=== PATIENT | female | born 1990 | race American Indian/Alaskan Native ===

== ENCOUNTER 2020-03-29 11:30 | Inpatient (IN) | payer MEDICAID ==
--- NOTE | 2020-04-03 09:11 | History and Physical Report ---
History of Present Illness Date of examination: 04/03/20 Chief complaint: scheduled section History of present illness: Pt is a 30 year old FELIPE 04/14/20 at 38w3d presents for scheduled section secondary to IUGR and previous x 3. She reports irregular contractions and denies vaginal bleeding or leakage of fluid. 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 She is GBS negative. Pt has been offered tubal ligation and declines at this time. She desires Paragard for contraception. Past History Past Medical History: no pertinent history, hematologic disorders (Sickle Cell Trait ) Past Surgical History: section (2010, 2014, 2016 ) Family/Genetic History: hypertension Social history: no significant social history - Obstetrical History Expected Date of Delivery: 04/14/20 Actual Gestation: 38 Week(s) 3 Day(s) : 4 Para: 3 Hx # Term Pregnancies: 3 Number of Pregnancies: 0 Spontaneous Abortions: 0 Induced : 0 Number of Living Children: 3 Review of Systems All systems: negative - Physical Exam Breasts: Positive: deferred Abdomen: Positive: soft (obese, gravid ) Extremities: Positive: edema (trace ) - Obstetrical FHR: auscultation normal Uterine Contraction Monitor Mode: External Uterine Contraction Pattern: Irregular Uterine Tone Measurement Phase: Resting Results All other labs normal. Assessment and Plan A: IUP at 38w3d IUGR Previous x 3 Sickle Cell Trait Silent Carrier for Alpha Thalassemia GBS Negative P: Proceed with repeat section and other indicated procedures
[2020-04-03] MEDS ORDERED: METOCLOPRAMIDE 10 MG/2 ML INJ IV SCH (11:00)
[2020-04-03] MEDS ORDERED: OXYTOCIN DRIP 30 UNITS/500 ML BAG IV SCH ×2 (11:00→17:25)
[2020-04-03] MEDS ORDERED: FAMOTIDINE 20 MG/2 ML INJ IV SCH (11:00)
[2020-04-03] MEDS ORDERED: BICITRA ORAL LIQD 30ML PO SCH (11:00)
[2020-04-03] MEDS ORDERED: ceFAZolin/Water 2 GM/20 ML 2 GM/20 ML SYRINGE IV NR (11:00)
[2020-04-03] MEDS: LACTATED RINGERS 1,000 ML IV SCH ×2 (11:03→12:23)
[2020-04-03 11:07] LABS: Basophils % (Auto) 0.4 % (0.0-1.8); Eosinophils % (Auto) 0.4 % (0.0-4.3); Hematocrit 32.5 % (30.3-42.9); Lymphocytes # (Auto) 1.5 K/mm3 (1.2-5.4); Lymphocytes % (Auto) 18.9 % (13.4-35.0); Mean Corpuscular HGB Conc 34 % (30-34); Mean Corpuscular Volume 80 fl (79-97); Monocytes # (Auto) 0.4 K/mm3 (0.0-0.8); Monocytes % (Auto) 4.9 % (0.0-7.3); Platelet Count 227 K/mm3 (140-440); Red Blood Count 4.05 M/mm3 (3.65-5.03); Red Cell Distribution Width 13.6 % (13.2-15.2)
--- NOTE | 2020-04-03 12:47 | Anesthesia Day of Surgery ---
Anesthesia Day of Surgery - Day of Surgery Patient Examined: Yes Patient H&P Reviewed: Yes Patient is NPO: Yes Beta Blockers: No Cardiac Clearance: No Pulmonary Clearance: No Shawn's Test: N/A
[2020-04-03] MEDS ORDERED: HYDROmorphone 1 MG/1 ML INJ IV PRN (12:49)
[2020-04-03] MEDS ORDERED: ONDANSETRON 4 MG/2 ML INJ IV PRN (12:49)
[2020-04-03] MEDS ORDERED: NALOXONE 0.4 MG/1 ML INJ IV PRN ×2 (12:49→17:25)
--- NOTE | 2020-04-03 12:49 | Anesthesia Consultation ---
Anesthesia Consult and Med Hx Date of service: 04/03/20 - Airway Anesthetic Teeth Evaluation: Good ROM Head & Neck: Adequate Mental/Hyoid Distance: Adequate Mallampati Class: Class II Intubation Access Assessment: Good - Pulmonary Exam CTA: Yes - Cardiac Exam Cardiac Exam: RRR - Pre-Operative Health Status ASA Pre-Surgery Classification: ASA2 Proposed Anesthetic Plan: Spinal - Pre-Anesthesia Comment Pre-Anesthesia Comments: c/sectionx3. No anesthesia complications - Pulmonary Hx Smoking: No Hx Asthma: No Hx Respiratory Symptoms: No SOB: No COPD: No Home Oxygen Therapy: No Hx Pneumonia: No Hx Sleep Apnea: No - Cardiovascular System Hx Hypertension: No Hx Coronary Artery Disease: No Hx Heart Attack/AMI: No Hx Angina: No Hx Percutaneous Transluminal Coronary Angioplasty (PTCA): No Hx Cardia Arrhythmia: No Hx Pacemaker: No Hx Internal Defibrillator: No Hx Valvular Heart Disease: No Hx Heart Murmur: No Hx Peripheral Vascular Disease: No - Central Nervous System Hx Neuromuscular Disorder: No Hx Seizures: No CVA: No Hx Back Pain: Yes Hx Psychiatric Problems: No - Gastrointestinal Hx Ulcer: No Hx Gastroesophageal Reflux Disease: Yes - Endocrine Hx Renal Disease: No Hx End Stage Renal Disease: No Hx Cirrhosis: No Hx Liver Disease: No Hx Insulin Dependent Diabetes: No Hx Non-Insulin Dependent Diabetes: No Hx Thyroid Disease: No Hx Hypothyroidism: No Hx Hyperthyroidism: No - Hematic Hx Anemia: No Hx Sickle Cell Disease: No - Other Systems Hx Alcohol Use: No Hx Substance Use: No Hx Cancer: No Hx Obesity: Yes
[2020-04-03] MEDS ORDERED: ONDANSETRON 4 MG/2 ML INJ ONE (12:56)
[2020-04-03] MEDS ORDERED: DEXMEDETOMIDINE 200 MCG/2 ML VIAL IV ONE (12:56)
[2020-04-03] MEDS ORDERED: WATER FOR IRRIG STERILE 1,500 ML BOTTLE IR ONE (13:05)
[2020-04-03] MEDS ORDERED: SODIUM CHLORIDE 0.9% IRR 1,500 ML BOTTLE IR ONE (13:05)
[2020-04-03] MEDS ORDERED: OXYTOCIN 10 UNIT/1 ML INJ ONE (13:58)
[2020-04-03] MEDS ORDERED: KETOROLAC 30 MG/1 ML INJ ONE ×2 (14:00→18:26)
--- NOTE | 2020-04-03 14:52 | Procedure Note ---
OB Delivery Note - Delivery Date of Delivery: 04/03/20 Surgeon: DONALD SON Estimated blood loss: other (1100 mL) - Section Preop diagnosis: repeat , other (IUGR ) Postop diagnosis: same section procedure: section, repeat low transverse Disposition: PACU Narrative: Please see operative report - Infant A at 1 minute: 8 at 5 minutes: 9 Infant Gender: Female (2408g (5lb 4.9 oz) @ 1351 pm)
--- NOTE | 2020-04-03 15:01 | Operative Report ---
Operative Report Operative Report: Date of procedure: April 03, 2020 Preoperative diagnosis: 1) IUP at 38w3d 2) Previous x 3 3) IUGR 4) Morbid Obesity BMI 42 Postoperative diagnosis: Same 5) Intraabdominal Adhesions Procedure: Repeat low transverse section , Lysis of Adhesions Surgeon: Lauren Ritchie M.D. Anesthesia: Regional Findings: 1) Viable female , Apgars 8 and 9, weight 2408 g, (5 lb 4.9 oz) in cephalic presentation 2) Normal-appearing uterus ovaries and tubes 3) Dense adhesions of parietal peritoneum to the lower uterine segment Estimated blood loss: 1100 mL IV fluids: 950 mL Urine output: 50 mL, clear at the end of the procedure Drains: Thompson to gravity Specimens: Placenta to pathology Complications: None. Counts correct x 3 Disposition: Stable to PACU Indication for procedure: Pt is a 30 year old at 38w3d with three prior sections and IUGR presents for scheduled section. She declines permanent sterilization. Operation in detail: After the risks, benefits, alternatives and complications were explained to the patient she gave informed consent for the procedure. She was subsequently taken to the operating room where regional anesthesia was noted to be adequate. She was subsequently placed in the dorsal supine position with leftward tilt and prepped and draped in a normal sterile fashion. heart tones were noted prior to incision. A timeout was performed. A Pfannenstiel skin incision was made with the knife and carried down to the layer of the fascia with the Bovie. The fascia was incised in the midline and the fascial incision was extended bilaterally with the Bovie. The fascial incision was then stretched. The rectus muscles were then in the midline and partially transected for adequate visualization. The peritoneum was then entered bluntly. The peritoneal incision was extended with good visualization of the bladder. Dense adhesions of the lower uterine segment to the parietal peritoneum were lysed with the Bovie. The peritoneal incision was then stretched. An Hadley retractor was placed. The bladder blade was then p laced. A transverse incision was made in the lower uterine segment with a knife and extended bilaterally with the bandage scissors. Amniotomy was performed with egress of clear fluid. head delivered with ease, followed by shoulders and body. bulb suctioned at delivery. Cord clamped and cut. handed to NICU staff in attendance. The placenta was then delivered manually. The uterus was then cleared of all clots and debris. The hysterotomy was then reapproximated with 0 Vicryl in a running locked fashion. A second layer of the same suture was used in imbricating fashion. The hysterotomy was inspected and hemostasis was noted. The gutters were irrigated and cleared of all clots and debris. The hysterotomy was again inspected and noted to be hemostatic. Surgicel was placed over the hysterotomy. Intercede was placed over the anterior surface of the uterus. The Hadley retractor was removed. The uterus was placed back into the peritoneal cavity. The peritoneum was reapproximated with 2-0 Vicryl in a running fashion incorporating the rectus muscles. Surgicel was placed over the rectus muscles. The fascia was reapproximated with 0 Vicryl in a running fashion. The subcutaneous tissue was reapproximated with 3-0 Vicryl in a running fashion. The skin was reapproximated with 4-0 Vicryl in a subcuticular fashion. The incision was then covered with steri strips and a pressure dressing. The procedure was then ended. The patient tolerated the procedure well and was taken to the PACU in stable condition. All instrument, lap, and needle counts were correct 3.
--- NOTE | 2020-04-03 15:02 | Progress Note ---
Spinal Anesthesia Block - Spinal Anesthesia Block Start Time: 13:09 Stop Time: 13:14 Performed by:: JOHN BLOCK Procedure: Patient IDed, H&P reviewed, all questions and concerns were answered, and consent was signed. Timeout was performed in OR. Patient in sitting position. Sterile prep and drape was performed. [3] ml of 1% lidocaine skin wheal at L[4]- L [5]. 18-gauge Tuohy epidural needle was advanced to loss of resistance with air technique to 5cm. Negative CSF negative blood via Tuohy needle. #27g Spinal needle clear, free flowing CSF, Pecedex 10 mcg. Epidural catheter advanced to [10] centimeters. [negative] Aspiration. Sterile dressing applied. Patient tolerated procedure.
[2020-04-03] MEDS ORDERED: ACETAMINOPHEN 325 MG TAB PO PRN (17:25)
[2020-04-03] MEDS ORDERED: MORPHINE 4 MG/1 ML INJ IV PRN (17:25)
[2020-04-03] MEDS ORDERED: WITCH HAZEL/ GLYCERIN PAD TP PRN (17:25)
[2020-04-03] MEDS ORDERED: MAGNESIUM HYDROXIDE (MOM) ORAL LIQD UDC PO PRN (17:25)
[2020-04-03] MEDS ORDERED: D5W/LACTATED RINGERS 1,000 ML IV SCH (17:25)
[2020-04-03] MEDS ORDERED: IBUPROFEN 800 MG TAB PO PRN (17:25)
[2020-04-03] MEDS ORDERED: LANOLIN/ZINC/DIMETHICONE (LANSINOH) 7 GM TP PRN (17:25)
[2020-04-03] MEDS ORDERED: SIMETHICONE 80 MG CHEW TAB PO PRN (17:25)
[2020-04-03] MEDS: KETOROLAC 30 MG/1 ML INJ IV SCH (18:30)
[2020-04-03] MEDS: MORPHINE 2 MG/1 ML INJ IV PRN (20:58)
[2020-04-03] MEDS: ceFAZolin/NS 1 GM/50 ML 1 GM/50 ML BAG IV SCH (21:39)
[2020-04-03] MEDS: oxyCODONE /ACETAMINOPHEN 5-325MG TAB PO PRN (23:48)
[2020-04-04] MEDS: MORPHINE 2 MG/1 ML INJ IV PRN (03:51)
[2020-04-04 05:35] LABS: Hematocrit 29.9 % (30.3-42.9); Hemoglobin 10.1 gm/dl (10.1-14.3)
[2020-04-04] MEDS: ceFAZolin/NS 1 GM/50 ML 1 GM/50 ML BAG IV SCH (05:52)
--- NOTE | 2020-04-04 08:05 | Progress Note ---
Assessment and Plan A: POD1 s/p repeat C/S at term. P:Routine care. Subjective - Subjective Date of service: 04/04/20 Principal diagnosis: POD1 s/p repeat LTCS Interval history: Patient without complaints. Some pain but overall well controlled. Reports ambulating normally but has not passed flatus nor has she had a bowel movement. Patient reports: voiding normally, pain well controlled, ambulating normally, no bowel movement : doing well Objective - Vital Signs Latest vital signs: Vital Signs Temp Pulse Resp BP BP Pulse Ox 04/04/20 04:30 98.8 F 78 18 118/78 04/04/20 00:30 98.6 F 74 18 114/79 04/03/20 21:38 98.0 F 77 18 104/61 95 04/03/20 17:11 97.9 F 14 102/52 04/03/20 16:20 78 13 91/59 04/03/20 16:00 68 15 94/46 100 04/03/20 15:45 79 14 89/48 100 04/03/20 15:30 71 14 90/43 100 04/03/20 15:15 72 14 90/45 100 04/03/20 15:00 97.5 F L 69 17 100/40 99 04/03/20 11:35 91 H 99 04/03/20 11:30 87 99 04/03/20 11:25 86 98 04/03/20 11:20 87 99 04/03/20 11:15 94 H 98 04/03/20 11:10 81 98 04/03/20 11:05 94 H 99 04/03/20 11:00 88 99 04/03/20 10:55 87 99 04/03/20 10:50 84 98 04/03/20 10:45 91 H 100 04/03/20 10:40 98.0 F 102 H 20 117/67 Intake and Output 04/03/20 04/04/20 04/04/20 23:59 07:59 15:59 Intake Total 850 Output Total 1280 200 Balance -430 -200 Intake: IV 550 ANCEF/NS 1 GM/50 ML 1 gm 50 In 50 ml @ 100 mls/hr IV Q8H [facility] Rx#:[id number] Intake, Free Water 300 Output: Urine 1280 200 Indwelling Catheter 1000 Uretheral (Thompson) 30 Void 200 Other: Total, Output Amount 1000 200 # Voids Void 1 - Exam Breasts: Present: deferred Abdomen: Present: normal appearance Uterus: Present: normal, firm, fundal height at umbilicus - Labs Labs: Abnormal lab results 04/03/20 04/04/20 Range/Units 10:53 04:57 Hct 29.9 L (30.3-42.9) % MCH 27 L (28-32) pg Seg Neutrophils % 75.4 H (40.0-70.0) %
[2020-04-04] MEDS: KETOROLAC 30 MG/1 ML INJ IV SCH (08:10)
--- NOTE | 2020-04-04 09:32 | Post Anesthesia Evaluation ---
- Post Anesthesia Evaluation Patient Participated: Yes Airway Patent: Yes Stable Respiratory Function: Yes Nausea/Vomiting: No Temp > 96.8F: Yes Pain Manageable: Yes Adequeate Hydration: Yes Anesthesia Complications: No Block Receding Appropriately: Yes Patient on Ventilator: No
[2020-04-04] MEDS ORDERED: FERROUS SULFATE 325 MG TAB PO SCH (10:00)
[2020-04-04] MEDS: oxyCODONE /ACETAMINOPHEN 5-325MG TAB PO PRN ×3 (12:00→21:41)
[2020-04-04] MEDS ORDERED: MEASLES, MUMPS & RUBELLA 12,500 UNIT/0.5 ML VACCINE SUB-Q ONE (15:02)
[2020-04-04] MEDS ORDERED: DIPHtheria,PERTUSSIS(ACELL),TETANUS VACCINE/PF 0.5 ML VIAL IM ONE (15:02)
[2020-04-05] MEDS: oxyCODONE /ACETAMINOPHEN 5-325MG TAB PO PRN ×2 (02:56→12:20)
--- NOTE | 2020-04-05 08:05 | Progress Note ---
Assessment and Plan A: POD2 s/p rLTCS Vital signs and labs stable No bowel movement yet P: Bowel regimen Discharge to home today per pt request Subjective - Subjective Date of service: 04/05/20 Principal diagnosis: s/p repeat LTCS Interval history: POD2 s/p RLTCS Patient reports: appetite normal, voiding normally, pain well controlled, flatus, ambulating normally, no bowel movement Cooks: doing well, nursing well Objective - Vital Signs Latest vital signs: Vital Signs Temp Pulse Resp BP BP Pulse Ox 04/05/20 07:17 97.8 F 71 19 120/52 100 04/05/20 03:56 18 04/05/20 02:56 18 04/05/20 00:00 98.8 F 68 16 115/78 04/04/20 22:41 18 04/04/20 21:41 18 04/04/20 20:10 98.0 F 101 H 18 99/61 97 04/04/20 17:42 20 04/04/20 17:14 97.9 F 91 H 18 120/61 99 04/04/20 12:33 98.2 F 88 18 109/71 98 04/04/20 12:00 20 04/04/20 08:10 20 Intake and Output 04/04/20 04/05/20 04/05/20 23:59 07:59 15:59 Intake Total 300 840 Balance 300 840 Intake: Oral 240 Intake, Free Water 300 600 Other: Total, Intake Amount 240 # Voids Void 1 1 - Exam Lungs: Present: Normal air movement Abdomen: Present: soft. Absent: distention Uterus: Present: firm, fundal height below umbilicus. Absent: bogginess Extremities: Present: normal Incision: Present: normal, dry, intact
--- NOTE | 2020-04-05 08:07 | Discharge Summary ---
Providers - Providers Date of Admission: 04/03/20 09:51 Date of discharge: 04/05/20 Attending physician: DONALD SON 04/03/20 17:25 Consult to Recruitment Intern [CONS] Routine Reason For Exam: Primary care physician: DONALD SON Hospitalization Reason for admission: section (delivery for growth restriction), IUP at term Delivery: Procedure: repeat low transverse Incision: normal, dry, intact Other procedures: none complications: none Discharge diagnosis: IUP at term delivered baby: female Condition at discharge: Good Disposition: DC-01 TO HOME OR SELFCARE Plan - Discharge Medications Prescriptions: Ferrous Sulfate [Feosol 325 MG tab] 325 mg PO BID #60 tablet Ibuprofen [Motrin] 800 mg PO Q8HR PRN #30 tablet PRN Reason: Pain, Moderate (4-6) oxyCODONE /ACETAMINOPHEN [Percocet 5/325] 1 tab PO Q6HR PRN #30 tablet PRN Reason: Pain - Provider Discharge Summary Activity: routine, no sex for 6 weeks, no heavy lifting 4 weeks, no strenuous exercise Diet: routine Instructions: routine Additional instructions: [] Smoking cessation referral if applicable(refer to patient education folder for contact #) [] Refer to [facility] Booklet Call your doctor immediately for: * Fever > 100.5 * Heavy vaginal bleeding ( >1 pad per hour) * Severe persistent headache * Shortness of breath * Reddened, hot, painful area to leg or breast * Drainage or odor from incision. * Keep incision clean and dry at all times and follow doctor's instructions regarding bathing/showering - Follow up plan Follow up: ISRA RAMSEY DIRECTOR OF RESIDENTIAL SERVICES [Advanced Practice Nurse] - 14 Days (Please call [facility] to schedule appointment.)
[2020-04-05] MEDS ORDERED: MAGNESIUM HYDROXIDE (MOM) ORAL LIQD UDC PO SCH (09:00)
[2020-04-05 13:32] VITALS: BP 114/72
== END 2020-04-05 13:45 | disposition home or self-care (01) | DRG 765 ==
LOC: APU 04-03 09:51 → OB 04-03 18:30
PROVIDERS: ADMIT Obstetrics & Gynecology; ATTEND Obstetrics & Gynecology
PROC: 10D00Z1 Extraction of Products of Conception, Low, Open Approach (ICD-10-PCS; principal; 2020-04-03)
PROC: 0DNW0ZZ Release Peritoneum, Open Approach (ICD-10-PCS; 2020-04-03)
PROC: 3E0234Z Introduction of Serum, Toxoid and Vaccine into Muscle, Percutaneous Approach (ICD-10-PCS; 2020-04-04)
PROC: 3E0134Z Introduction of Serum, Toxoid and Vaccine into Subcutaneous Tissue, Percutaneous Approach (ICD-10-PCS; 2020-04-04)
DX: O34.211 Maternal care for low transverse scar from previous cesarean delivery (principal); O36.5930 Maternal care for other known or suspected poor fetal growth, third trimester, not applicable or unspecified; Z37.0 Single live birth; Z3A.38 38 weeks gestation of pregnancy; Z23 Encounter for immunization; O99.02 Anemia complicating childbirth; D56.3 Thalassemia minor; O99.214 Obesity complicating childbirth; E66.01 Morbid (severe) obesity due to excess calories; O99.62 Diseases of the digestive system complicating childbirth; K66.0 Peritoneal adhesions (postprocedural) (postinfection)
CPT/HCPCS: 36415; 59025; 85014; 85018; 85025; 86592; 86850; 86900; 86901; 88307; G0378; C1765; J0690; J1885; J2270; J2405; J2590; J2765; J3490; J7120; J7121